=== PATIENT | female | born 1950 | race Caucasian/White ===

== ENCOUNTER 2022-01-06 17:00 | Outpatient (CLI) | payer MEDICARE, BC | END 2022-01-06 17:01 | disposition short-term general hospital (02) | LOC: EMS 17:00 | DX: R07.9 Chest pain, unspecified (principal); R06.02 Shortness of breath; R51.9 Headache, unspecified; I10 Essential (primary) hypertension | CPT/HCPCS: A0425; A0427 ==

== ENCOUNTER 2024-01-15 08:00 | Outpatient (CLI) | payer MEDICARE, BC ==
--- NOTE | 2024-01-15 16:04 | XRAY Report ---
PROCEDURE: Hand 3+V RT INDICATIONS: RIGHT HAND PAIN TECHNIQUE: 3 views of the hand(s) acquired. COMPARISON: None. FINDINGS: Bones: No fractures or dislocations. No suspicious bony lesions. Soft tissues: Soft tissue swelling of the fifth digit IMPRESSION: Soft tissue swelling of the fifth digit. No acute bony abnormality. Reviewed by: Alex Saenz MD on 01/15/2024 4:03 PM PST Approved by: Alxe Saenz MD on 01/15/2024 4:03 PM PST Station ID: [id number]
== END 2024-01-15 23:59 | disposition home or self-care (01) ==
LOC: DI.S 08:00
PROVIDERS: ATTEND Registered Nurse
DX: M25.541 Pain in joints of right hand (principal); R22.31 Localized swelling, mass and lump, right upper limb

== ENCOUNTER 2024-01-25 08:00 | Outpatient (CLI) | payer MEDICARE, BC ==
--- NOTE | 2024-01-26 15:09 | XRAY Report ---
PROCEDURE: Hand 3+V RT INDICATIONS: RIGHT HAND PAIN TECHNIQUE: 3 views of the hand(s) acquired. COMPARISON: X-ray hand 01/15/2024 FINDINGS: Bones: There is slight subluxation at the fifth PIP joint. No discrete fractures identified.. No mejia spicious bony lesions. Soft tissues: No suspicious soft tissue calcifications or masses. Mild appearance of decreased sof t tissue edema. IMPRESSION: Slight subluxation at the fifth PIP joint. Mild decreased fifth digit soft tissue edema. No discrete fracture. If concern persists, CT or MRI is recommended. Reviewed by: Leatha Blake MD on 01/26/2024 3:08 PM PST Approved by: Leatha Blake MD on 01/26/2024 3:08 PM PST Station ID: [id number]
== END 2024-01-25 23:59 | disposition home or self-care (01) ==
LOC: DI.S 08:00
PROVIDERS: ATTEND Registered Nurse
DX: S63.236A Subluxation of proximal interphalangeal joint of right little finger, initial encounter (principal)